=== PATIENT | female | born 1995 | race Caucasian/White ===

== ENCOUNTER 2022-05-01 07:08 | Outpatient (CLI) | payer MEDICAID, SELFPAY ==
--- NOTE | 2022-05-01 07:10 | CRLHL7_ITS ---
For Patients: As a result of the Century Cures Act, medical imaging exams and procedure reports are released immediately into your electronic medical record. You may view this report before your referring provider. If you have questions, please contact your health care provider. INDICATION: First trimester scan, establish dates. COMPARISON: None. TECHNIQUE: Real-time hatfield-scale imaging of the pelvis was performed. FINDINGS: Sonographic imaging demonstrates a single living intrauterine gestation. The embryo demonstrates a regular cardiac rate measuring 171 beats per minute. The embryo`s crown-rump length measurement of 1.5 cm corresponds to a gestational age of 8 weeks 0 days with a sonographic due date of December 12, 2022. There is a normal-appearing yolk sac measuring 3.7 mm. There are no gross abnormalities noted within the embryo at this early state of development. The placenta has not yet developed. The gestational sac has a normal appearance and there is no evidence of a perigestational hemorrhage. The amount of fluid within the sac appears appropriate for gestational age. The cervix is closed. The myometrium appears normal. The ovaries are of normal size. The right ovary measures 3.4 x 2.5 x 3.3 cm. The left ovary measures 4.0 x 2.0 x 2.8 cm. There are no suspicious fluid collections noted in the cul-de-sac. IMPRESSION: Normal first trimester OB ultrasound exam. Gestational age calculated at 8 weeks 0 days with a sonographic due date of December 11, 2022. Dictated by Mathew Lanza MD @ 05/01/2022 9:00:59 AM (Electronically Signed)
== END 2022-05-01 07:09 | disposition home or self-care (01) ==
LOC: US 07:10
PROVIDERS: Visit Provider Advanced Practice Midwife
DX: Z34.91 Encounter for supervision of normal pregnancy, unspecified, first trimester (principal); Z3A.08 8 weeks gestation of pregnancy
CPT/HCPCS: 76817

== ENCOUNTER 2022-05-01 10:15 | Outpatient (CLI) | payer MEDICAID, SELFPAY ==
[2022-05-01 13:11] LABS: Chlamydia DNA Amplified* NOT DETECTED (No Detected); GC DNA Amplified* NOT DETECTED (No Detected)
== END 2022-05-01 10:16 | disposition home or self-care (01) ==
PROVIDERS: Visit Provider Advanced Practice Midwife
DX: Z34.91 Encounter for supervision of normal pregnancy, unspecified, first trimester (principal); Z3A.09 9 weeks gestation of pregnancy
CPT/HCPCS: 87491; 87591

== ENCOUNTER 2022-05-29 09:19 | Outpatient (CLI) | payer MEDICAID, SELFPAY | END 2022-05-29 09:20 | disposition home or self-care (01) | LOC: NFLDREF 13:59 | PROVIDERS: Visit Provider Advanced Practice Midwife | DX: Z34.91 Encounter for supervision of normal pregnancy, unspecified, first trimester (principal); Z3A.13 13 weeks gestation of pregnancy | CPT/HCPCS: 86592; 86703; 86762; 86787; 86803; 86850; 86900; 86901; 87086; 87340 ==

== ENCOUNTER 2022-07-17 07:09 | Outpatient (CLI) | payer MEDICAID, SELFPAY ==
--- NOTE | 2022-07-17 07:15 | CRLHL7_ITS ---
For Patients: As a result of the Century Cures Act, medical imaging exams and procedure reports are released immediately into your electronic medical record. You may view this report before your referring provider. If you have questions, please contact your health care provider. INDICATION: Evaluate anatomy. COMPARISON: 05/01/2022 TECHNIQUE: Real time hatfield scale imaging of the fetus was performed as well as color Doppler analysis of the umbilical vessels. FINDINGS: Sonographic imaging demonstrates a single living intrauterine gestation. Fetus demonstrates a regular cardiac rate of 141 beats per minute. Fetus has a breech position. The placenta lies posteriorly without evidence of placenta previa. The edge of the placenta is located 5.2 cm from the internal cervical os. Amniotic fluid volume appears normal. Single deepest vertical pocket: 3.7 cm. The cervix is closed and measures 4.4 cm in length. The composite ultrasound gestational age is calculated at 19 weeks 1 day with an estimated sonographic due date of 12/10/2022. The estimated weight is 269 grams which lies at the 7th %. The following biometric measurements were obtained: Biparietal diameter: 4.2 cm/18 weeks 5 days 7th% Head circumference: 16.5 cm/19 weeks 1 day 12th% Abdominal circumference: 13.9 cm/19 weeks 2 days 21st% Femur length: 2.8 cm/18 weeks 5 days 8th% The HC/AC ratio measures: 1.19 range (1.09-1.26) On anatomic survey, there is a normal appearance of the cerebral ventricles, cavum septi pellucidi, cisterna magna and cerebellum. The nose, lips, and facial profile appear normal. The cervical, thoracic and lumbar spine are well visualized and appear normal. There is a normal four-chamber heart view and the left and right ventricular outflow tracts appear normal. The diaphragm and stomach appear normal. The kidneys and bladder also appear normal. There is a normal three-vessel cord and there is an eccentric cord insertion site. There is an image showing the cord insert 2.4 cm from the placental edge. The four extremities appear normal. IMPRESSION: Sonographic gestational age 19 weeks 1 day and sonographic due date 12/10/2022. Sonographic age 6 days behind the clinical age. Estimated weight 7th percentile. Abdominal circumference 21st percentile. Eccentric cord insertion into the placenta. No intrinsic abnormalities noted on anatomic survey. Dictated by Igor Howard MD @ 07/17/2022 9:37:02 AM (Electronically Signed)
== END 2022-07-17 07:10 | disposition home or self-care (01) ==
LOC: US 07:10
PROVIDERS: Visit Provider Advanced Practice Midwife
DX: Z34.92 Encounter for supervision of normal pregnancy, unspecified, second trimester (principal); Z3A.19 19 weeks gestation of pregnancy
CPT/HCPCS: 76805; 76820

== ENCOUNTER 2022-08-25 09:32 | Outpatient (CLI) | payer MEDICAID, SELFPAY ==
[2022-08-25 09:46] VITALS: BP 127/76; PULSE 88
[2022-08-25 10:32] LABS: Appearance Urine Cloudy (Clear); Bilirubin Urine Negative (Negative); Blood Urine Negative (Negative); Color Urine Dark yellow (Yellow); Glucose Urine Negative (Negative); Ketones Urine Negative (Negative); Leukocyte Esterase Urine Negative (Negative); Nitrite Urine Negative (Negative); Protein Urine Negative (Negative); Specific Gravity Urine 1.025 (1.000-1.030)
[2022-08-25 10:37] LABS: Amnisure Rom* Negative
[2022-08-25 10:53] LABS: RBC Urine 0-2 (0-2); Squamous Epithelial Cell Urine Few (None-Few); WBC Urine 0-2 (0-5)
[2022-08-25 10:55] LABS: Amorphous Sediment Urine Many; Bacteria Urine Moderate
[2022-08-25 10:56] LABS: Yeast No Yeast Seen (None Seen)
[2022-08-25 10:57] LABS: Clue Cells No Clue Cells Seen (None Seen); Trichomonas No Trichomonas Seen (None Seen)
[2022-08-25 11:04] LABS: Fetal Fibronectin* Negative (Negative)
--- NOTE | 2022-08-25 12:23 | P.OBLDTN_ITS ---
OB - Triage/Final Diagnosis Visit Information Time Seen by Provider: 11:30 Date Seen: 08/25/22 Narrative: Ariane is a 27 yo at 25 4/7 weeks gestation who presents with concerns for possible ROM. She reports she had a small gush of fluid yesterday morning but it did not happen again throughout the day. This morning she had another small gush of fluid that then happened again a little bit after. She denies any bleeding or contractions. +FM. She denies any itching, burning, soreness, or odor. Amnisure and wet prep were negative. Urine sample was sent for analysis and culture. Discussed possible causes for the leaking of fluid including ROM, accidental uri nation, infection, or increase normal discharge. There is no concern for ROM or infection based on exam and labs. Recommended discharge home. If she continues to have leaking of fluid or a change in her symptoms she should return for evaluation. Reason for evaluation: other (Leaking of fluid) Evaluation Laboratory results: Laboratory Tests 08/25/22 Range/Units Unknown Urine Color Dark yellow (Yellow) Urine Appearance Cloudy A (Clear) Urine pH 7.0 (5.0-8.5) Ur Specific [place] 1.025 (1.000-1.030) Urine Protein Negative (Negative) Urine Glucose (UA) Negative (Negative) Urine Ketones Negative (Negative) Urine Blood Negative (Negative) Urine Nitrite Negative (Negative) Urine Bilirubin Negative (Negative) Urine Urobilinogen 1.0 (0.2-1.0) Ur Leukocyte Esterase Negative (Negative) Urine RBC 0-2 (0-2) Urine WBC 0-2 (0-5) Ur Squamous Epith Cells Few (None-Few) Amorphous Sediment Many A (None) Urine Bacteria Moderate A (None) Membrane Rupture Negative Vaginal Trichomonas No Trichomonas Seen (None Seen) Vaginal Yeast No Yeast Seen (None Seen) Vaginal Clue Cells No Clue Cells Seen (None Seen) Group B Strep DNA Pending Fibronectin Negative (Negative) Vital signs: Vital Signs - 24 hr 08/25/22 09:46 Pulse Rate 88 Blood Pressure 127/76 Comments: General Appearance:? Alert, appropriate appearance for age. No acute distress?? Chest/Respiratory Exam: Normal chest wall and respirations. Unlabored breathing.??? Pelvic Exam Female: Normal external female anatomy.??? On speculum exam, the vaginal mucosa and cervix are normal in appearance without visible lesions. Normal discharge, no pooling noted. Cervix appears closed. Psychiatric Exam: Alert and oriented, appropriate affect.?? Fetus (Single) Heart Rate Baseline: 140 Longterm Variability: Moderate (6-25) Monitor Accelerations: Present Monitor Decelerations: None Final Diagnosis (1) Vaginal discharge during in second trimester: Status: Acute
[2022-08-26 11:33] LABS: Strep B DNA Probe NEGATIVE (Negative)
[2022-08-26 12:49] LABS: Strep B Pen/Amox Allergy No
--- NOTE | 2022-08-28 16:58 | PC.OBNST ---
NST Note NST Note Start: 08/25/22 09:51 Freq: ONCE Status: Discharge Protocol: Document 08/25/22 11:15 LATONYA (Rec: 08/25/22 11:56 LATONYA [id number]) NST Note 2 Para (# of births) 1 EDC 12/04/22 Gestational Age In Weeks & Days 25 Weeks & 4 Days Patient Presented with Complaint(s) of Leaking fluid Other Complaints Patient described 3 gushes of fluid in the last 2 days. Denies ctx. Amnisure and exam negative Reactive Yes Appropriate for Gestational Age Yes GILA Victor, RN Date 08/25/22 Reactive Yes Appropriate for Gestational Age Yes GILA Harman RN Date 08/25/22 OB NST charge Yes Complete NST Note via Write Note Yes The provider's electronic signature indicates the NST is reactive/appropriate for gestational age. *Note to provider: If an addendum is required, open the patient's chart and click on the note under the Nurse/Allied Health tab.
== END 2022-08-25 11:30 | disposition home or self-care (01) ==
LOC: OB OUT 09:33 → OB 09:34
PROVIDERS: Visit Provider Advanced Practice Midwife
DX: O26.892 Other specified pregnancy related conditions, second trimester (principal); N89.8 Other specified noninflammatory disorders of vagina
CPT/HCPCS: 59025; 81001; 84112; 87081; 87086; 87210; 87653; 99213

== ENCOUNTER 2022-09-11 10:31 | Outpatient (CLI) | payer MEDICAID, SELFPAY | END 2022-09-11 10:32 | disposition home or self-care (01) | PROVIDERS: Visit Provider Advanced Practice Midwife | DX: Z34.93 Encounter for supervision of normal pregnancy, unspecified, third trimester (principal) | CPT/HCPCS: 86592 ==

== ENCOUNTER 2022-10-27 08:13 | Outpatient (CLI) | payer MEDICAID, SELFPAY ==
[2022-10-27] VITALS (17 sets, daily range): BP systolic 143–182; BP diastolic 91–111; PULSE 65–100; RESP 16; TEMP 36.9–37; O2SAT 98
[2022-10-27] MEDS: LABETALOL HCL 5 MG/ML inj IVP ×2 (09:00→10:14)
[2022-10-27] MEDS: MAGNESIUM IV 4 GM/100 ML PIGGYBACK IVPB (09:09)
[2022-10-27] MEDS: LACTATED RINGERS 1000 ML 1,000 ML 75 ML IV (09:10)
[2022-10-27 09:24] LABS: Hematocrit 39.3 % (33.0-51.0); Mean Corpuscular HGB Conc 33 gm/dL (32-36); Mean Corpuscular Hemoglobin 25 pg (26-34); Mean Corpuscular Volume 76 fL (80-100); Platelet Count* 235 K/uL (140-440); Red Blood Count 5.15 m/uL (4.00-5.20); White Blood Count* 8.29 K/uL (4.50-11.00)
[2022-10-27 09:27] LABS: Slide Review Reflex No
[2022-10-27 09:33] LABS: Creatinine Urine 233.6 mg/dL
[2022-10-27] MEDS: BETAMETHASONE SOD PHOS/ACETATE 6 MG/ML ML 12 MG IM (09:33)
--- NOTE | 2022-10-27 09:38 | PM.OBCN1 ---
OB - CN: HPI Date of Consult Time Seen by Provider: 09:38 Date Seen: 10/27/22 Patient: [facility] Patient Consult date: 10/27/22 Requesting Physician: Theresa Rhodes CNM Primary Care Provider: Not a Local Provider Consult Narrative Reason for consult: other Narrative: The patient is a 27 year old G 2 P 1001 at 34 4/7 weeks gestation that was admitted to the Center on 10/27/22 with severely elevated blood pressures. Patient has had care with our braille transcriber team. States to have called her braille transcriber this past weekend due to concerns of headache, GERD, indigestion. She had been able to manage headache with Tylenol, until last night. States that headache did not go away with Tylenol and also was experiencing some visual changes that she described as seeing zig zags in front of her. Patient also noted that her face was much more swollen this morning. Patient called labor and delivery this morning and was asked to come in to be evaluated. Upon arrival patient was found with persistent severely elevated blood pressures needing IV antihypertensive medication. Diagnosis of severe preeclampsia given. History of Present Dating criteria: based on LMP care: good care Ultrasounds: normal 1st trimester US and abnormal US findings (EFW in the 3rd percentile, saw perinatology and normal EFW. Possible marginal cord insertion, later seen to be eccentric.) complications comment: None, until today Medical Complications: None History History 2 Elective abortions 0 Para 1 Spontaneous abortions 0 Hx # Term Pregnancies 1 Ectopic pregnancies Hx # Pregnancies 0 Multiple births Number of Living Children 1 Past Pregnancies Del. Date GA/Weeks Outcome Route wt Inf Gender Labor Lgth Anesthesia Location Provider Compli 01/22/19 39 live - full term 3.827 kg Male epidural Delivery Date: 01/22/19 Last Updated by: Natividad Gallardo CNM denies any complications Labs Blood type: A (+) positive Rubella: immune RPR/VDLR: nonreactive GBS status: unknown (Collected) HBsAG: negative Review of Systems Status of ROS: Reports: 10 or more systems reviewed and unremarkable except as noted in History and below PFSH PFSH Family History (Updated 05/01/22 @ 08:49 by Natividad Gallardo CNM) Paternal Grandmother High blood pressure Breast cancer Paternal Grandfather Diabetes Prostate cancer Social History What is your current living situation?: I presently have a place to live Problems where you live: no known problems In the past 12 months, utilities in danger of being shut off: no In the past 12 mos, have been you worried that your food would run out before you had money to buy more?: never true In the past 12 mos, the food you bought just didn't last and you didn't have money to buy more?: never true Smoking Status: Never smoker How often does anyone, including family, friends and others, physically hurt you: never How often does anyone, including family, friends and others, insult or talk down to you: never How often does anyone, including family, friends and others, threaten you with harm: never How often does anyone, including family, friends and others, scream or curse at you: never Little interest or pleasure in doing things: not at all Feeling down, depressed, or hopeless: not at all Meds Home Medications and Allergies Home Medications Medication Instructions Recorded Confirmed Type folic acid 800 mcg tablet 0.8 mg PO QDAY 05/01/22 10/27/22 History ondansetron HCl 8 mg tablet 8 mg PO Q8H 05/01/22 10/27/22 History albuterol sulfate 90 mcg/actuation 2 puff inhalation Q6H PRN wheezing 10/27/22 10/27/22 History aerosol inhaler (Ventolin HFA) Allergies Allergy/AdvReac Type Severity Reaction Status Date / Time amoxicillin Allergy Intermediate Rash Verified 10/24/22 08:48 OB - H&P: Exam Physical Exam: Vital signs: Temp Pulse BP Pulse Ox 98.5 F 96 149/101 H 98 10/27/22 08:32 10/27/22 09:31 10/27/22 09:31 10/27/22 08:23 Narrative: VITAL SIGNS: As noted above. GENERAL APPEARANCE: Alert, cooperative female in no acute distress. MOOD & AFFECT: Normal. CHEST: Clear to auscultation bilaterally, regular rate and rhythm of heart. ABDOMEN: Gravid, non tender. EXTREMITIES: Bilateral pitting edema +2.Well perfused. Nontender. Normal reflexes. NST: 140bpm/moderate variability/positive accelerations/negative decelerations/sporadic uterine contractions OB - Results Labs Labs: Short CBC 10/27/22 Range/Units 08:58 WBC 8.29 (4.50-11.00) K/uL Hgb 13.0 (12.0-16.0) gm/dL Hct 39.3 (33.0-51.0) % Plt Count 235 (140-440) K/uL AST:27 ALT:16 BUN:18 Creatinine:1.0 Fibrinogen:449 Bedside US: Vertex, SDP: 4cm. OB - CN: A/P Assessment and Plan (1) Severe hypertension affecting : Status: Acute Assessment and Plan: 1. IV labetalol 20mg x2 so far, this has decreased blood pressure to the 150s range systolic, 90-100s diastolic. One dose of PO labetalol 200mg also given now. 2. IV magnesium infusion running at 50mL/hr. IVFs 75mL. 3. First dose of betamethasone given. 4. GBS collected. 5. Labs, creatinine 1.0, needs close monitoring of I/Os, Fisher catheter will be placed. 6. Since patient is 34.4 weeks unable to deliver at our institution, [facility] has accepted her case and we will proceed with transfer. Patient is in agreement with this plan.
[2022-10-27 09:42] LABS: INR 0.81 (0.91-1.10); Prothrombin Time 11.7 Seconds
[2022-10-27 09:43] LABS: Fibrinogen* 449 mg/dL (200-450); Partial Thromboplastin Time* 28 Seconds (23-33)
[2022-10-27 09:44] LABS: Aspartate Amino Transferase* 27 U/L (12-35); Estimated Glomerular Filt Rate 79 ml/min
[2022-10-27 09:45] LABS: Alanine Aminotransferase* 16 U/L (4-35); Blood Urea Nitrogen* 18 mg/dL (5-24); Uric Acid* 6.9 mg/dL (2.2-8.4)
[2022-10-27] MEDS: LABETALOL HCL 100 MG TABLET 200 MG PO (10:02)
[2022-10-27] MEDS: lidocaine HCL 2 % JELLY (TOP) STERILE 6 ML TOPICAL (10:32)
[2022-10-27 10:42] LABS: Total Protein Urine 3261 mg/dL
--- NOTE | 2022-10-27 11:53 | PC.OBNST ---
NST Note NST Note Start: 10/27/22 08:32 Freq: ONCE Status: Active Protocol: Document 10/27/22 11:51 MMB (Rec: 10/27/22 11:52 MMB [id number]) NST Note 2 Para (# of births) 1 EDC 12/04/22 Gestational Age In Weeks & Days 34 Weeks & 4 Days Patient Presented with Complaint(s) of Headache,Other Other Complaints Visual disturbances, swelling. PT tx to [facility]. Reactive Yes Appropriate for Gestational Age Yes RN Ivy Bacon RN Date 10/27/22 Reactive Yes Appropriate for Gestational Age Yes GILA Duckworth RN Date 10/27/22 OB NST charge Yes Complete NST Note via Write Note Yes The provider's electronic signature indicates the NST is reactive/appropriate for gestational age. *Note to provider: If an addendum is required, open the patient's chart and click on the note under the Nurse/Allied Health tab.
[2022-10-28 11:36] LABS: Strep B DNA Probe NEGATIVE (Negative)
[2022-10-28 14:22] LABS: Strep B Pen/Amox Allergy Yes
== END 2022-10-27 11:02 | disposition home or self-care (01) ==
LOC: OB OUT 08:13 → OB 08:14
PROVIDERS: Visit Provider Advanced Practice Midwife
DX: O26.893 Other specified pregnancy related conditions, third trimester (principal); H53.9 Unspecified visual disturbance; R51.9 Headache, unspecified; Z3A.34 34 weeks gestation of pregnancy
CPT/HCPCS: 36415; 59025; 76815; 82565; 82570; 84156; 84450; 84460; 84520; 84550; 85027; 85384; 85610; 85730; 87081; 87653; 99213; A9270; J0702; J3475; J7120

== ENCOUNTER 2022-10-27 10:51 | Outpatient (CLI) | payer MEDICAID, SELFPAY | END 2022-10-27 10:52 | disposition home or self-care (01) | LOC: AMB 10-30 03:13 | PROVIDERS: Visit Provider Family Medicine | DX: O26.893 Other specified pregnancy related conditions, third trimester (principal); R51.9 Headache, unspecified; H53.9 Unspecified visual disturbance; Z3A.34 34 weeks gestation of pregnancy | CPT/HCPCS: A0425; A0426 ==

== ENCOUNTER 2024-03-25 09:27 | Outpatient (CLI) | payer MEDICAID, SELFPAY | END 2024-03-25 09:28 | disposition home or self-care (01) | LOC: NFLDREF 09:28 | PROVIDERS: Visit Provider Obstetrics & Gynecology | DX: N92.6 Irregular menstruation, unspecified (principal) | CPT/HCPCS: 84702 ==

== ENCOUNTER 2024-04-11 09:50 | Outpatient (CLI) | payer MEDICAID, SELFPAY | END 2024-04-11 09:51 | disposition home or self-care (01) | LOC: NFLDREF 04-16 03:51 | PROVIDERS: Visit Provider Obstetrics & Gynecology | DX: O03.9 Complete or unspecified spontaneous abortion without complication (principal) | CPT/HCPCS: 84702 ==